=== PATIENT | female | born 1990 | race Caucasian/White ===

== ENCOUNTER 2017-09-01 08:40 | Inpatient (IN) | payer BC ==
[~2017-09-01] VITALS: Ht 165.1 cm; Wt 65.0 kg
[2017-09-01] VITALS (8 sets, daily range): BP systolic 118–137; BP diastolic 57–74
[2017-09-01] MEDS ORDERED: PRENATAL TABLE1 EAC3 PO (09:10)
[2017-09-01 10:14] LABS: EOSINOPHIL (%) 0 % (0-5); HEMATOCRIT 32.6 % (36.0-46.0); IMMATURE GRANULOCYTE (%) 0.7 % (0.0-0.7); IMMATURE GRANULOCYTE COUNT 0.1 K/uL; LYMPHOCYTE COUNT 1.3 K/uL (1.0-2.8); MCH 25.1 PG (29.0-34.0); MCHC 31.6 G/DL (30.0-36.0); MCV 79.5 FL (83-99); MEAN PLAT.VOLUME 10.2 uM^3 (9.5-12.4); MONOCYTE COUNT 0.5 K/uL (0-0.8); NEUTROPHIL (%) 85.1 % (45-76); PLATELET COUNT 279 K/uL (156-360); RBC DIS.WIDTH-CV 15.4 % (11.8-14.6); RBC DIS.WIDTH-SD 44.3 % (39-53); WHITE BLOOD COUNT 12.9 K/uL (4.1-10.2)
[2017-09-01] MEDS ORDERED: IBUPROFEN800 MG PO (11:48)
[2017-09-02 07:12] VITALS: BP 105/59
[2017-09-02 15:14] VITALS: BP 109/58
[2017-09-03 07:41] VITALS: BP 106/57
== END 2017-09-03 13:20 | disposition home or self-care (01) | DRG 775 ==
LOC: LDRP-OP 08:40 → 2WEST 08:41 → LDRP-OP 10-01 14:37
PROVIDERS: Midwife
PROC: 10E0XZZ Delivery of Products of Conception, External Approach (ICD-10-PCS; principal; 2017-09-01)
PROC: 0HQ9XZZ Repair Perineum Skin, External Approach (ICD-10-PCS; principal; 2017-09-01)
PROC: 10907ZC Drainage of Amniotic Fluid, Therapeutic from Products of Conception, Via Natural or Artificial Opening (ICD-10-PCS; 2017-09-01)
DX: O70.0 First degree perineal laceration during delivery (principal); Z3A.40 40 weeks gestation of pregnancy; Z37.0 Single live birth
CPT/HCPCS: 85025